=== PATIENT | male | born 1970 | race Caucasian/White ===

== ENCOUNTER 2017-08-16 20:31 | Emergency (ER) | payer MEDICAID ==
[~2017-08-16] VITALS: Ht 170.2 cm; Wt 78.0 kg
[2017-08-17] MEDS ORDERED: IBUPROFEN 600MG TABLET PO ONE (04:30)
[2017-08-17 05:50] VITALS: BP 121/69
== END 2017-08-17 05:50 | disposition home or self-care (01) ==
LOC: ER 22:27
DX: S42.031A Displaced fracture of lateral end of right clavicle, initial encounter for closed fracture (principal); S43.101A Unspecified dislocation of right acromioclavicular joint, initial encounter; F17.200 Nicotine dependence, unspecified, uncomplicated; Y08.89XA Assault by other specified means, initial encounter; Y93.89 Activity, other specified; Y92.89 Other specified places as the place of occurrence of the external cause; Y99.8 Other external cause status
CPT/HCPCS: 73000; 73030; 99284